=== PATIENT | male | born 1985 | race African-American/Black ===

== ENCOUNTER 2017-04-28 02:50 | Inpatient (IN) ==
[2017-04-28] MEDS ORDERED: KETOROLAC 30 MG/1 ML VIAL IV STA (03:29)
[2017-04-28] MEDS ORDERED: ALUM/MAG/SIMETH/LIDO VISC 1:1 30 ML BOTTLE PO STA (03:29)
[2017-04-28] MEDS ORDERED: MORPHINE 2 MG/1 ML SYRINGE IV STA (03:29)
[2017-04-28] MEDS ORDERED: SODIUM CHLORIDE 0.9% 500 ML IV STA (03:29)
[2017-04-28] MEDS ORDERED: PANTOPRAZOLE 40 MG VIAL IV STA (03:29)
[2017-04-28] MEDS ORDERED: ONDANSETRON 4 MG/2 ML VIAL IV STA (03:29)
[2017-04-28] MEDS ORDERED: ASPIRIN 325 MG TABLET PO STA (03:29)
[2017-04-28] MEDS ORDERED: ASPIRIN 325 MG TABLET ONE (03:37)
[2017-04-28] MEDS ORDERED: KETOROLAC 30 MG/1 ML VIAL ONE (03:37)
[2017-04-28] MEDS ORDERED: ALUM/MAG/SIMETH/LIDO VISC 1:1 30 ML BOTTLE PO ONE (03:37)
[2017-04-28] MEDS ORDERED: ONDANSETRON 4 MG/2 ML VIAL ONE (03:37)
[2017-04-28] MEDS ORDERED: MORPHINE 2 MG/1 ML SYRINGE ONE (03:37)
[2017-04-28] MEDS ORDERED: PANTOPRAZOLE 40 MG VIAL IV ONE (03:39)
[2017-04-28 03:45] LABS: Basophils # 0.1 10*3/uL (0.0-0.2); Basophils % 0.9 % (0.0-0.8); Eosinophils # 0.1 10*3/uL (0.0-0.87); Eosinophils % 0.7 % (0.00-10.9); Hematocrit 45.1 VOL% (42.0-52.0); Hemoglobin 15.9 GM/DL (14.0-18.0); Immature Granulocytes % 0.3 %; Immature Granulocytes Absolute 0.03 #; Lymphocytes # 1.8 10*3/uL (1.4-4.0); Lymphocytes % 20.6 % (21.2-54.2); Mean Corpuscular HGB Conc 35.3 GM/DL (32-36); Mean Corpuscular Hemoglobin 32 PG (27-34); Mean Corpuscular Volume 90.7 FL (87-102); Mean Platelet Volume 10.6 FL (9.6-12.0); Monocytes # 0.8 10*3/uL (0.11-0.8); Monocytes % 8.8 % (1.7-12.7); Neutrophils # 6.1 10*3/uL (1.4-7.4); Neutrophils % 68.7 % (38.7-73.9); Platelet Count 265 T/CUMM (130-400); Red Blood Count 4.97 MC/CUMM (3.8-5.5); Red Cell Distribution Width 11.6 % (9.3-17.3); White Blood Count 8.9 T/CUMM (4-12)
[2017-04-28 03:57] LABS: INR 0.9; PT Patient Result 9.9 SECS
[2017-04-28 04:07] LABS: Alanine Aminotransferase 32 U/L (16-61); Albumin 4.5 G/DL (3.4-5.0); Alkaline Phosphatase 105 U/L (45-117); Amylase 79 U/L (25-115); Aspartate Amino Transferase 26 U/L (0-37); Blood Urea Nitrogen 19 MG/DL (7-18); Calcium 9.8 MG/DL (8.5-10.1); Osmolality,Calculated 282.1 MOS/KG (273-304); Potassium 4.6 MMOL/L (3.5-5.1); Sodium 128 MMOL/L (136-145); Total Protein 8.3 G/DL (6.4-8.3); Troponin I Only < 0.015 NG/ML (0.00-0.045)
[2017-04-28 04:08] LABS: Magnesium 2.2 MG/DL (1.8-2.4)
[2017-04-28 04:09] LABS: Glucose 533 MG/DL (74-106)
[2017-04-28] MEDS ORDERED: INSULIN REGULAR 100 UNIT/ML IV STA (04:10)
[2017-04-28] MEDS ORDERED: SODIUM CHLORIDE 0.9% 1,000 ML IV STA (04:11)
[2017-04-28 04:17] LABS: Lactic Acid 3.3 MMOL/L (0.4-2.0)
[2017-04-28] MEDS ORDERED: INSULIN REGULAR 100 UNIT/ML ONE (04:21)
[2017-04-28 04:37] LABS: Allen Test Positive; Pt O2 Delivery Device Room Air
[2017-04-28 04:38] LABS: ABG Base Excess -15.3 MMOL/L (-2.5-2.5); ABG HCO3 13.2 MMOL/L (20-26); ABG Oxygen Saturation 96.8 % (95-100); ABG PCO2 28.4 MM HG (35-48); ABG PH 7.219 (7.35-7.45); ABG PO2 97.3 MM HG (80-95); ABG TCO2 10.2 MMOL/L (23-27)
[2017-04-28 05:00] LABS: Apearance,Urine CLEAR (Clear); Bilirubin,Urine Negative (Negative); Blood, Urine Small mg/dL (Negative); Glucose,Urine (UA) >=500 mg/dL (Negative); Ketones,Urine 80 mg/dL (Negative); Mucus,Urine Occasional /LPF (Occasional); Nitrite,Urine Negative (Negative); Protein,Urine Negative; RBC,Urine <1 /HPF (0-4); Urine Color Colorless (Yellow); Urine Specific Gravity 1.025 (1.001-1.035); Urine Urobilinogen < 2.0 EU/DL (0.2-1.0); WBC,Urine <1 /HPF (0-6)
[2017-04-28] MEDS ORDERED: INSULIN REGULAR DRIP 100 ML IV ONE (05:12)
[2017-04-28 05:13] LABS: Barbiturates Screen,Urine Negative (Negative); Benzodiazepines Screen,Urine Negative (Negative); Cannabinoid Screen,Urine Negative (Negative); Opiate Screen,Urine Negative (Negative); Phencyclidine Screen,Urine Negative (Negative)
[2017-04-28] MEDS ORDERED: INSULIN REGULAR DRIP 100 ML IV SCH ×2 (05:30→05:43)
[2017-04-28] MEDS ORDERED: SODIUM BICARB INJ 100 MEQ in STERILE WATER INJ 400 ML IV PRN (05:43)
[2017-04-28] MEDS ORDERED: SODIUM CHLORIDE 0.9% 1,000 ML IV ONE (05:43)
[2017-04-28] MEDS ORDERED: MAGNESIUM SULF RIDER 2 GM in PREMIX 1 EACH IV PRN (05:43)
[2017-04-28] MEDS ORDERED: SODIUM PHOSPHATE INJ 17 MMOL in SODIUM CHLORIDE 0.9% 250 ML IV PRN (05:43)
[2017-04-28] MEDS ORDERED: INSULIN REGULAR 100 UNIT/ML IV ONE ×4 (05:43→13:19)
[2017-04-28] MEDS ORDERED: MAGNESIUM SULF RIDER 4 GM in PREMIX 1 EACH IV PRN (05:43)
[2017-04-28] MEDS ORDERED: POTASSIUM CHLORIDE RIDER 10 MEQ in PREMIX 1 EACH IV PRN (05:43)
[2017-04-28] MEDS ORDERED: DEXTROSE 50% 25 GM/50 ML VIAL IV PRN ×3 (05:43→14:10)
[2017-04-28 07:15] LABS: Basophils # 0.1 10*3/uL (0.0-0.2); Basophils % 0.6 % (0.0-0.8); Eosinophils % 0.2 % (0.00-10.9); Hematocrit 37.1 VOL% (42.0-52.0); Hemoglobin 13.5 GM/DL (14.0-18.0); Immature Granulocytes % 0.3 %; Immature Granulocytes Absolute 0.03 #; Lymphocytes # 1.6 10*3/uL (1.4-4.0); Lymphocytes % 18.6 % (21.2-54.2); Mean Corpuscular HGB Conc 36.4 GM/DL (32-36); Mean Corpuscular Hemoglobin 32 PG (27-34); Mean Platelet Volume 10.5 FL (9.6-12.0); Monocytes # 0.8 10*3/uL (0.11-0.8); Monocytes % 9.2 % (1.7-12.7); Neutrophils # 6.3 10*3/uL (1.4-7.4); Neutrophils % 71.1 % (38.7-73.9); Platelet Count 236 T/CUMM (130-400); Red Blood Count 4.17 MC/CUMM (3.8-5.5); Red Cell Distribution Width 11.5 % (9.3-17.3); White Blood Count 8.8 T/CUMM (4-12)
[2017-04-28] MEDS: SODIUM CHLORIDE 0.9% 1,000 ML IV SCH ×2 (07:35→09:51)
[2017-04-28 08:33] LABS: Calcium 8.4 MG/DL (8.5-10.1); Osmolality,Calculated 283.1 MOS/KG (273-304); Potassium 4.3 MMOL/L (3.5-5.1)
[2017-04-28] MEDS: PYRIDOSTIGMINE 60 MG TABLET PO SCH ×4 (09:08→20:20)
[2017-04-28] MEDS: ENOXAPARIN 40 MG/0.4 ML SYRINGE SUBCUT SCH (09:08)
[2017-04-28 10:18] LABS: Calcium 7.5 MG/DL (8.5-10.1)
[2017-04-28 10:19] LABS: Osmolality,Calculated 285.8 MOS/KG (273-304); Potassium 3.8 MMOL/L (3.5-5.1)
[2017-04-28] MEDS ORDERED: SODIUM CHLORIDE 0.9% 1,000 ML IV SCH (10:19)
[2017-04-28] MEDS ORDERED: DEXTROSE 5% NACL 0.9% 1,000 ML IV SCH (13:30)
[2017-04-28 13:36] LABS: Calcium 7.3 MG/DL (8.5-10.1); Osmolality,Calculated 283.5 MOS/KG (273-304); Potassium 3.8 MMOL/L (3.5-5.1)
[2017-04-28] MEDS ORDERED: GLUCAGON 1 MG VIAL IM PRN (14:10)
[2017-04-28] MEDS: INSULIN GLARGINE 100 UNIT/ML SUBCUT SCH (14:24)
[2017-04-28] MEDS: SODIUM CHLORIDE 0.45% 1,000 ML IV SCH ×2 (14:24→21:49)
[2017-04-28] MEDS: INSULIN LISPRO 100 UNIT/ML SUBCUT SCH ×2 (16:09→20:19)
[2017-04-28] MEDS ORDERED: PHENOL 1.4% THROAT SPRAY 177 ML BOTTLE PO PRN (20:36)
[2017-04-28] MEDS ORDERED: ONDANSETRON 4 MG/2 ML VIAL IV PRN (23:11)
[2017-04-29 04:49] LABS: Basophils % 0.6 % (0.0-0.8); Eosinophils # 0.2 10*3/uL (0.0-0.87); Eosinophils % 3.1 % (0.00-10.9); Hemoglobin 12.4 GM/DL (14.0-18.0); Immature Granulocytes % 0.3 %; Immature Granulocytes Absolute 0.02 #; Lymphocytes # 2.5 10*3/uL (1.4-4.0); Lymphocytes % 38.8 % (21.2-54.2); Mean Corpuscular HGB Conc 35.4 GM/DL (32-36); Mean Corpuscular Hemoglobin 32 PG (27-34); Mean Corpuscular Volume 89.1 FL (87-102); Mean Platelet Volume 10.7 FL (9.6-12.0); Monocytes # 0.7 10*3/uL (0.11-0.8); Monocytes % 10.3 % (1.7-12.7); Neutrophils % 46.9 % (38.7-73.9); Platelet Count 214 T/CUMM (130-400); Red Blood Count 3.93 MC/CUMM (3.8-5.5); Red Cell Distribution Width 11.6 % (9.3-17.3); White Blood Count 6.4 T/CUMM (4-12)
[2017-04-29 05:26] LABS: Calcium 7.7 MG/DL (8.5-10.1)
[2017-04-29 05:27] LABS: Potassium 3.6 MMOL/L (3.5-5.1)
[2017-04-29 06:19] LABS: Magnesium 2.2 MG/DL (1.8-2.4); Phosphorous 2.1 MG/DL (2.5-4.9)
[2017-04-29] MEDS: SODIUM CHLORIDE 0.45% 1,000 ML IV SCH (06:23)
[2017-04-29] MEDS: INSULIN LISPRO 100 UNIT/ML SUBCUT SCH ×2 (08:54→12:06)
[2017-04-29] MEDS ORDERED: predniSONE 20 MG TABLET PO SCH (09:00)
[2017-04-29] MEDS: PYRIDOSTIGMINE 60 MG TABLET PO SCH (09:34)
[2017-04-29] MEDS: INSULIN GLARGINE 100 UNIT/ML SUBCUT SCH (09:34)
[2017-04-29] MEDS: ENOXAPARIN 40 MG/0.4 ML SYRINGE SUBCUT SCH (09:35)
[2017-04-29 12:24] VITALS: BP 129/87
== END 2017-04-29 13:11 | disposition home or self-care (01) | DRG 638 ==
LOC: N.ED 02:50 → N.EDINP 04:40 → SUATTDRO 04:40 → N.ICU 05:18
PROVIDERS: ADMIT Internal Medicine; ATTEND Internal Medicine

== ENCOUNTER 2018-05-17 22:16 | Inpatient (IN) ==
[2018-05-17] MEDS ORDERED: ONDANSETRON 4 MG/2 ML VIAL IV STA (22:47)
[2018-05-17] MEDS ORDERED: SODIUM CHLORIDE 0.9% 1,000 ML IV STA (22:47)
[2018-05-17] MEDS ORDERED: KETOROLAC 30 MG/1 ML VIAL IV STA (22:48)
[2018-05-17 23:07] LABS: Basophils # 0.1 10*3/uL (0.0-0.2); Basophils % 0.4 % (0.0-0.8); Eosinophils % 0.2 % (0.00-10.9); Hematocrit 45.2 VOL% (42.0-52.0); Hemoglobin 15.1 GM/DL (14.0-18.0); Immature Granulocytes Absolute 0.19 #; Lymphocytes # 1.1 10*3/uL (1.4-4.0); Lymphocytes % 5.6 % (21.2-54.2); Mean Corpuscular HGB Conc 33.4 GM/DL (32-36); Mean Corpuscular Hemoglobin 33 PG (27-34); Mean Corpuscular Volume 98.3 FL (87-102); Monocytes # 1.4 10*3/uL (0.11-0.8); Monocytes % 7.3 % (1.7-12.7); NRBC # 0.02 10*3/uL; Neutrophils # 16.3 10*3/uL (1.4-7.4); Neutrophils % 85.5 % (38.7-73.9); Platelet Count 361 T/CUMM (130-400); Red Cell Distribution Width 12.2 % (9.3-17.3)
[2018-05-17 23:25] LABS: Albumin 4.7 G/DL (3.4-5.0); Calcium 9.7 MG/DL (8.5-10.1); Osmolality,Calculated 286.5 MOS/KG (273-304); Potassium 5.2 MMOL/L (3.5-5.1); Total Protein 9.2 G/DL (6.4-8.3)
[2018-05-18] MEDS ORDERED: INSULIN REGULAR 100 UNIT/ML ONE (00:17)
[2018-05-18] MEDS ORDERED: SODIUM CHLORIDE 0.9% 1,000 ML IV STA (00:24)
[2018-05-18] MEDS ORDERED: INSULIN REGULAR 100 UNIT/ML IV STA (00:24)
[2018-05-18] MEDS ORDERED: ONDANSETRON 4 MG/2 ML VIAL IV STA (00:28)
[2018-05-18] MEDS ORDERED: cefTRIAXone 1,000 MG in SODIUM CHLORIDE 0.9% 100 ML IV STA (00:37)
[2018-05-18 01:00] LABS: Apearance,Urine CLEAR (Clear); Bilirubin,Urine Negative (Negative); Blood, Urine Negative (Negative); Glucose,Urine (UA) >=500 mg/dL (Negative); Ketones,Urine 80 mg/dL (Negative); Nitrite,Urine Negative (Negative); Protein,Urine 30 MG/DL; RBC,Urine <1 /HPF (0-4); Urine Color Straw (Yellow); Urine Specific Gravity 1.018 (1.001-1.035); Urine Urobilinogen < 2.0 EU/DL (0.2-1.0); WBC,Urine 1 /HPF (0-6)
[2018-05-18 01:11] LABS: ABG Base Excess -18.5 MMOL/L (-2.5-2.5); ABG HCO3 11.1 MMOL/L (20-26); ABG Oxygen Saturation 97.4 % (95-100); ABG PCO2 25.6 MM HG (35-48); ABG TCO2 8.4 MMOL/L (23-27); Allen Test Positive; Pt O2 Delivery Device Room Air
[2018-05-18 01:13] LABS: ABG PH 7.167 (7.35-7.45)
[2018-05-18] MEDS ORDERED: SODIUM CHLORIDE 0.9% 1,000 ML IV ONE (01:22)
[2018-05-18] MEDS ORDERED: SODIUM BICARB INJ 100 MEQ in STERILE WATER INJ 400 ML IV PRN (01:22)
[2018-05-18] MEDS ORDERED: MAGNESIUM SULF RIDER 2 GM in PREMIX 1 EACH IV PRN (01:22)
[2018-05-18] MEDS ORDERED: MAGNESIUM SULF RIDER 4 GM in PREMIX 1 EACH IV PRN (01:22)
[2018-05-18] MEDS ORDERED: DEXTROSE 50% 25 GM/50 ML VIAL IV PRN ×2 (01:22)
[2018-05-18] MEDS ORDERED: SODIUM PHOSPHATE INJ 17 MMOL in SODIUM CHLORIDE 0.9% 250 ML IV PRN (01:22)
[2018-05-18] MEDS ORDERED: ALBUTEROL 2.5 MG/3 ML NEB RESP TX PRN (01:31)
[2018-05-18] MEDS ORDERED: PROMETHAZINE 25 MG/1 ML VIAL IM PRN ×2 (01:31→10:03)
[2018-05-18] MEDS ORDERED: ACETAMINOPHEN 325 MG TABLET PO PRN (01:31)
[2018-05-18] MEDS ORDERED: AZITHROMYCIN INJ 500 MG in SODIUM CHLORIDE 0.9% 250 ML IV SCH (02:00)
[2018-05-18 02:04] LABS: Calcium 8.4 MG/DL (8.5-10.1); Osmolality,Calculated 288.1 MOS/KG (273-304)
[2018-05-18] MEDS: SODIUM CHLORIDE 0.9% 1,000 ML IV SCH ×2 (02:09→04:22)
[2018-05-18] MEDS: INSULIN REGULAR DRIP 100 ML IV SCH ×2 (02:10→18:09)
[2018-05-18] MEDS: ONDANSETRON 4 MG/2 ML VIAL IV PRN ×3 (02:41→17:37)
[2018-05-18 04:31] LABS: ABG Base Excess -13.3 MMOL/L (-2.5-2.5); ABG HCO3 14.3 MMOL/L (20-26); ABG PCO2 28.6 MM HG (35-48); ABG PH 7.258 (7.35-7.45); ABG TCO2 11.4 MMOL/L (23-27); Allen Test Positive; Pt O2 Delivery Device Room Air
[2018-05-18 05:17] LABS: Basophils # 0.1 10*3/uL (0.0-0.2); Basophils % 0.3 % (0.0-0.8); Hematocrit 35.9 VOL% (42.0-52.0); Hemoglobin 12.1 GM/DL (14.0-18.0); Immature Granulocytes Absolute 0.19 #; Lymphocytes # 1.1 10*3/uL (1.4-4.0); Lymphocytes % 5.6 % (21.2-54.2); Mean Corpuscular HGB Conc 33.7 GM/DL (32-36); Mean Corpuscular Hemoglobin 33 PG (27-34); Mean Corpuscular Volume 97.3 FL (87-102); Mean Platelet Volume 10.4 FL (9.6-12.0); Monocytes # 1.1 10*3/uL (0.11-0.8); Monocytes % 5.8 % (1.7-12.7); Neutrophils # 17.1 10*3/uL (1.4-7.4); Neutrophils % 87.3 % (38.7-73.9); Platelet Count 320 T/CUMM (130-400); Red Blood Count 3.69 MC/CUMM (3.8-5.5); Red Cell Distribution Width 12.2 % (9.3-17.3); White Blood Count 19.5 T/CUMM (4-12)
[2018-05-18 05:23] LABS: Osmolality,Calculated 287.7 MOS/KG (273-304); Potassium 4.7 MMOL/L (3.5-5.1)
[2018-05-18] MEDS ORDERED: DEXTROSE 5% NACL 0.9% 1,000 ML IV SCH ×2 (05:30→06:30)
[2018-05-18] MEDS ORDERED: SODIUM CHLORIDE 0.9% 1,000 ML IV SCH (06:22)
[2018-05-18] MEDS: DEXT 5% NACL 0.45% KCL 20 MEQ 20 MEQ/1,000 ML BAG IV SCH ×3 (08:24→16:05)
[2018-05-18] MEDS: HYDROCORTISONE 100 MG VIAL IV SCH ×2 (08:28→16:12)
[2018-05-18] MEDS: PYRIDOSTIGMINE 60 MG TABLET PO SCH ×4 (08:31→21:00)
[2018-05-18 10:45] LABS: Calcium 8.5 MG/DL (8.5-10.1); Osmolality,Calculated 283.3 MOS/KG (273-304); Potassium 3.6 MMOL/L (3.5-5.1)
[2018-05-18] MEDS: HYDROmorphone 2 MG/1 ML VIAL IV PRN ×2 (11:04→18:54)
[2018-05-18 14:36] LABS: Calcium 8.4 MG/DL (8.5-10.1); Osmolality,Calculated 281.7 MOS/KG (273-304); Potassium 4.6 MMOL/L (3.5-5.1)
[2018-05-18 18:09] LABS: Calcium 8.7 MG/DL (8.5-10.1); Osmolality,Calculated 280.4 MOS/KG (273-304); Potassium 3.8 MMOL/L (3.5-5.1)
[2018-05-18] MEDS ORDERED: SODIUM CHLORIDE 0.45% 1,000 ML IV SCH (18:22)
[2018-05-18] MEDS ORDERED: DEXT 5% NACL 0.45% KCL 20 MEQ 20 MEQ/1,000 ML BAG IV SCH (20:00)
[2018-05-18] MEDS: POTASSIUM CHLORIDE INJ 10 MEQ in DEXTROSE 5% NACL 0.9% 1,000 ML IV SCH (20:59)
[2018-05-18] MEDS: PANTOPRAZOLE 40 MG VIAL IV SCH (21:24)
[2018-05-18 22:07] LABS: Calcium 8.3 MG/DL (8.5-10.1); Osmolality,Calculated 282.4 MOS/KG (273-304); Potassium 3.8 MMOL/L (3.5-5.1)
[2018-05-19] MEDS: HYDROCORTISONE 100 MG VIAL IV SCH ×4 (00:03→21:56)
[2018-05-19] MEDS: cefTRIAXone 1,000 MG in SYRINGE 1 EACH IV SCH (00:52)
[2018-05-19] MEDS: INSULIN REGULAR DRIP 100 ML IV SCH (02:07)
[2018-05-19 03:07] LABS: Calcium 8.7 MG/DL (8.5-10.1); Osmolality,Calculated 273.8 MOS/KG (273-304); Potassium 3.7 MMOL/L (3.5-5.1)
[2018-05-19] MEDS: POTASSIUM CHLORIDE RIDER 10 MEQ in PREMIX 1 EACH IV PRN ×3 (03:26→11:18)
[2018-05-19] MEDS: POTASSIUM CHLORIDE INJ 10 MEQ in DEXTROSE 5% NACL 0.9% 1,000 ML IV SCH ×2 (04:58→13:18)
[2018-05-19 05:48] LABS: Osmolality,Calculated 276.5 MOS/KG (273-304); Potassium 3.7 MMOL/L (3.5-5.1)
[2018-05-19] MEDS ORDERED: INSULIN NPH/REGULAR 70/30 100 UNIT/ML SUBCUT SCH (08:30)
[2018-05-19] MEDS: INSULIN LISPRO 100 UNIT/ML SUBCUT SCH ×4 (08:53→22:00)
[2018-05-19] MEDS: PANTOPRAZOLE 40 MG VIAL IV SCH ×2 (09:06→21:52)
[2018-05-19] MEDS: ONDANSETRON 4 MG/2 ML VIAL IV PRN (09:11)
[2018-05-19] MEDS: PYRIDOSTIGMINE 60 MG TABLET PO SCH ×4 (09:54→21:55)
[2018-05-19] MEDS: diphenhydrAMINE CAP 25 MG CAPSULE PO PRN (12:25)
[2018-05-19] MEDS ORDERED: INSULIN GLARGINE 100 UNIT/ML SUBCUT SCH (21:00)
[2018-05-20] MEDS: cefTRIAXone 1,000 MG in SYRINGE 1 EACH IV SCH (00:51)
[2018-05-20] MEDS: POTASSIUM CHLORIDE INJ 10 MEQ in DEXTROSE 5% NACL 0.9% 1,000 ML IV SCH ×3 (00:54→13:40)
[2018-05-20] MEDS: INSULIN LISPRO 100 UNIT/ML SUBCUT SCH ×4 (02:20→11:39)
[2018-05-20] MEDS: diphenhydrAMINE CAP 25 MG CAPSULE PO PRN (04:08)
[2018-05-20 05:15] LABS: Calcium 8.4 MG/DL (8.5-10.1); Osmolality,Calculated 285.8 MOS/KG (273-304); Potassium 3.9 MMOL/L (3.5-5.1)
[2018-05-20] MEDS: HYDROCORTISONE 100 MG VIAL IV SCH (08:36)
[2018-05-20] MEDS: PYRIDOSTIGMINE 60 MG TABLET PO SCH ×2 (09:53→20:31)
[2018-05-20] MEDS: PANTOPRAZOLE 40 MG VIAL IV SCH (09:53)
[2018-05-20 12:33] VITALS: BP 127/79
== END 2018-05-20 13:30 | disposition home or self-care (01) | DRG 638 ==
LOC: N.ED 22:16 → N.EDINP 05-18 01:21 → SUATTDRO 05-18 01:21 → N.CC 05-18 01:30 → N.3E 05-19 16:37
PROVIDERS: ADMIT Internal Medicine; ATTEND Internal Medicine

== ENCOUNTER 2021-12-10 19:46 | Inpatient (IN) ==
[2021-12-10] MEDS ORDERED: SODIUM CHLORIDE 0.9% 1,000 ML IV STA (20:37)
[2021-12-10] MEDS ORDERED: INSULIN REGULAR 100 UNIT/ML IV ONE (21:25)
[2021-12-10] MEDS ORDERED: ONDANSETRON 4 MG/2 ML VIAL IV ONE (22:07)
[2021-12-10 22:10] LABS: Basophils # 0.1 10*3/uL (0.0-0.2); Basophils % 0.5 % (0.0-0.8); Eosinophils % 0.2 % (0.00-10.9); Hematocrit 43.9 VOL% (42.0-52.0); Hemoglobin 15.2 GM/DL (14.0-18.0); Immature Granulocytes % 0.7 %; Immature Granulocytes Absolute 0.15 #; Lymphocytes # 0.9 10*3/uL (1.4-4.0); Lymphocytes % 4.1 % (21.2-54.2); Mean Corpuscular HGB Conc 34.6 GM/DL (32-36); Mean Corpuscular Volume 92.6 FL (87-102); Mean Platelet Volume 10.1 FL (9.6-12.0); Monocytes # 1.2 10*3/uL (0.11-0.8); Monocytes % 5.5 % (1.7-12.7); Platelet Count 322 T/CUMM (130-400); Red Blood Count 4.74 MC/CUMM (3.8-5.5); Red Cell Distribution Width 12.4 % (9.3-17.3); White Blood Count 21.4 T/CUMM (4-12)
[2021-12-10 22:32] LABS: Albumin 4.3 G/DL (3.4-5.0); Bilirubin,Total 2.4 MG/DL (0.20-1.00); Calcium 9.6 MG/DL (8.5-10.1); Osmolality,Calculated 282.5 MOS/KG (273-304); Potassium 5.9 MMOL/L (3.5-5.1); Total Protein 8.2 G/DL (6.4-8.2)
[2021-12-10 22:34] LABS: Lymphocytes 4 % (20-55); Total Cells Counted 100
[2021-12-10 22:35] LABS: Platelet Estimate Normal
[2021-12-10] MEDS ORDERED: MORPHINE 2 MG/1 ML SYRINGE IV STA (22:42)
[2021-12-10] MEDS ORDERED: LACTATED RINGERS 1,000 ML IV SCH (23:30)
[2021-12-10] MEDS ORDERED: SODIUM BICARB INJ 100 MEQ in STERILE WATER INJ 400 ML IV PRN (23:43)
[2021-12-10] MEDS ORDERED: SODIUM PHOSPHATE IV PRN (23:43)
[2021-12-10] MEDS ORDERED: SODIUM CHLORIDE 0.9% IV PRN (23:43)
[2021-12-10] MEDS ORDERED: MAGNESIUM SULF RIDER 4 GM/100 ML PREMIX IV PRN (23:43)
[2021-12-10] MEDS ORDERED: POTASSIUM CHLORIDE RIDER 10 MEQ/100 ML PREMIX IV PRN (23:43)
[2021-12-10] MEDS ORDERED: MAGNESIUM SULF RIDER 2 GM/50 ML PREMIX IV PRN (23:43)
[2021-12-10] MEDS ORDERED: INSULIN REGULAR DRIP 100 ML IV SCH (23:45)
[2021-12-10] MEDS ORDERED: INSULIN REGULAR DRIP 100 ML IV PRN (23:48)
[2021-12-11] MEDS ORDERED: DEXTROSE 50% 25 GM/50 ML SYRINGE IV PRN (00:40)
[2021-12-11] MEDS ORDERED: DEXTROSE 10% 250 ML BAG IV PRN ×3 (00:40→12:51)
[2021-12-11] MEDS: SODIUM CHLORIDE 0.9% 1,000 ML IV SCH ×3 (00:59→05:31)
[2021-12-11 01:00] LABS: Bacteria,Urine Occasional /HPF (Few); Mucus,Urine Occasional /LPF (Occasional); RBC,Urine 2 /HPF (0-4)
[2021-12-11 01:01] LABS: Bilirubin,Urine Negative (Negative); Blood, Urine Trace mg/dL (Negative); Glucose,Urine (UA) 500 mg/dL (Negative); Ketones,Urine >160 mg/dL (Negative); Nitrite,Urine Negative (Negative); Protein,Urine 30 mg/dL (Negative); Urine Appearance Clear (Clear); Urine Color Yellow (Yellow); Urine Specific Gravity > 1.030 (1.001-1.035); Urine Urobilinogen 0.2 eU/dL (<2.0); Urine pH 5.5 (4.5-8.0)
[2021-12-11] MEDS ORDERED: ALBUTEROL 2.5 MG/3 ML NEB RESP TX PRN (02:10)
[2021-12-11] MEDS ORDERED: ONDANSETRON 4 MG/2 ML VIAL IV PRN (02:10)
[2021-12-11] MEDS ORDERED: PROMETHAZINE 25 MG/1 ML VIAL IM PRN (02:10)
[2021-12-11 02:47] VITALS: BP 121/66
[2021-12-11 03:23] LABS: Basophils # 0.1 10*3/uL (0.0-0.2); Basophils % 0.3 % (0.0-0.8); Hematocrit 39.1 VOL% (42.0-52.0); Hemoglobin 13.4 GM/DL (14.0-18.0); Immature Granulocytes % 0.6 %; Immature Granulocytes Absolute 0.13 #; Lymphocytes # 1.8 10*3/uL (1.4-4.0); Mean Corpuscular HGB Conc 34.3 GM/DL (32-36); Mean Corpuscular Volume 93.1 FL (87-102); Monocytes % 4.7 % (1.7-12.7); Neutrophils % 85.4 % (38.7-73.9); Platelet Count 359 T/CUMM (130-400); Red Cell Distribution Width 12.5 % (9.3-17.3); White Blood Count 20.2 T/CUMM (4-12)
[2021-12-11 03:25] LABS: Arterial Base Excess iSTAT -10 MMOL/L (-2.5-2.5); Arterial Bicarbonate iSTAT 16.4 MMOL/L (20-26); Arterial O2 Saturation iSTAT 88 % (95-100); Arterial PCO2 iSTAT 36 MM HG (35-48); Arterial PO2 iSTAT 61 MM HG (80-95); Arterial Total CO2 iSTAT 17 MMO/L (23-27); Arterial pH iSTAT 7.263 (7.35-7.45)
[2021-12-11 03:41] LABS: Lymphocytes 11 % (20-55); Total Cells Counted 100
[2021-12-11 03:42] LABS: Platelet Estimate Normal
[2021-12-11 03:43] LABS: Calcium 8.5 MG/DL (8.5-10.1); Osmolality,Calculated 282.5 MOS/KG (273-304); Phosphorous 3.8 MG/DL (2.5-4.9); Potassium 4.6 MMOL/L (3.5-5.1)
[2021-12-11] MEDS ORDERED: SODIUM CHLORIDE 0.9% 1,000 ML IV SCH (05:00)
[2021-12-11] MEDS ORDERED: DEXTROSE 5% NACL 0.9% 1,000 ML IV SCH ×2 (05:30→06:00)
[2021-12-11 08:44] LABS: Osmolality,Calculated 280.5 MOS/KG (273-304); Potassium 4.1 MMOL/L (3.5-5.1)
[2021-12-11] MEDS ORDERED: PANTOPRAZOLE 40 MG VIAL IV SCH (09:00)
[2021-12-11] MEDS ORDERED: SODIUM CHLORIDE 0.9% 1,000 ML IV ONE (09:00)
[2021-12-11] MEDS: SODIUM CHLORIDE 0.45% 1,000 ML IV SCH ×4 (09:30→17:11)
[2021-12-11] MEDS: prednisoLONE 15 MG/5 ML ORAL.SYR PO SCH (09:37)
[2021-12-11] MEDS: ENOXAPARIN 40 MG/0.4 ML SYRINGE SUBCUT SCH (09:37)
[2021-12-11] MEDS: azaTHIOprine 50 MG TABLET PO SCH ×2 (09:38→20:03)
[2021-12-11] MEDS: PYRIDOSTIGMINE 60 MG TABLET PO SCH ×3 (09:38→20:03)
[2021-12-11] MEDS ORDERED: DEXTROSE 5% NACL 0.45% 1,000 ML IV SCH (10:30)
[2021-12-11 12:26] LABS: Calcium 7.9 MG/DL (8.5-10.1); Osmolality,Calculated 280.7 MOS/KG (273-304); Potassium 3.3 MMOL/L (3.5-5.1)
[2021-12-11] MEDS ORDERED: GLUCAGON 1 MG VIAL IM PRN (12:49)
[2021-12-11] MEDS: INSULIN GLARGINE 100 UNIT/ML SUBCUT SCH (13:15)
[2021-12-11] MEDS: IMMUNE GLOBULIN IV SCH (13:25)
[2021-12-11] MEDS: INSULIN LISPRO 100 UNIT/ML SUBCUT SCH ×2 (16:23→20:00)
[2021-12-11] MEDS: POTASSIUM CHLORIDE 20 MEQ TABLET PO PRN ×2 (16:23→20:22)
[2021-12-11] MEDS ORDERED: SODIUM CHLORIDE 0.45% 1,000 ML IV SCH (17:00)
[2021-12-11] MEDS: PHENOL 1.4% THROAT SPRAY 177 ML BOTTLE PO PRN (19:51)
[2021-12-12] MEDS: SODIUM CHLORIDE 0.45% 1,000 ML IV SCH ×3 (01:33→21:17)
[2021-12-12] MEDS: PHENOL 1.4% THROAT SPRAY 177 ML BOTTLE PO PRN (05:06)
[2021-12-12 05:44] LABS: Basophils % 0.5 % (0.0-0.8); Eosinophils # 0.1 10*3/uL (0.0-0.87); Eosinophils % 0.8 % (0.00-10.9); Hematocrit 34.5 VOL% (42.0-52.0); Hemoglobin 11.8 GM/DL (14.0-18.0); Immature Granulocytes % 0.2 %; Immature Granulocytes Absolute 0.02 #; Lymphocytes # 2.5 10*3/uL (1.4-4.0); Lymphocytes % 29.1 % (21.2-54.2); Mean Corpuscular HGB Conc 34.2 GM/DL (32-36); Mean Corpuscular Volume 92.2 FL (87-102); Mean Platelet Volume 9.9 FL (9.6-12.0); Monocytes # 0.7 10*3/uL (0.11-0.8); Monocytes % 8.2 % (1.7-12.7); Neutrophils % 61.2 % (38.7-73.9); Platelet Count 299 T/CUMM (130-400); Red Blood Count 3.74 MC/CUMM (3.8-5.5); Red Cell Distribution Width 12.5 % (9.3-17.3); White Blood Count 8.6 T/CUMM (4-12)
[2021-12-12 05:57] LABS: Calcium 8.8 MG/DL (8.5-10.1); Osmolality,Calculated 270.7 MOS/KG (273-304); Potassium 3.3 MMOL/L (3.5-5.1)
[2021-12-12 06:02] LABS: Risk Ratio 2.03; VLDL Cholesterol 14.4 MG/DL
[2021-12-12] MEDS: INSULIN LISPRO 100 UNIT/ML SUBCUT SCH ×4 (07:20→20:58)
[2021-12-12] MEDS: ACETAMINOPHEN 325 MG TABLET PO PRN ×2 (08:18→15:33)
[2021-12-12] MEDS: INSULIN GLARGINE 100 UNIT/ML SUBCUT SCH (08:54)
[2021-12-12] MEDS: ENOXAPARIN 40 MG/0.4 ML SYRINGE SUBCUT SCH (09:49)
[2021-12-12] MEDS: azaTHIOprine 50 MG TABLET PO SCH ×2 (09:50→20:57)
[2021-12-12] MEDS: POTASSIUM CHLORIDE 20 MEQ TABLET PO PRN ×3 (09:51→15:22)
[2021-12-12] MEDS: prednisoLONE 15 MG/5 ML ORAL.SYR PO SCH (09:51)
[2021-12-12] MEDS: PYRIDOSTIGMINE 60 MG TABLET PO SCH ×3 (09:51→20:57)
[2021-12-12] MEDS ORDERED: IBUPROFEN 400 MG TABLET PO ONE (13:01)
[2021-12-12] MEDS ORDERED: IBUPROFEN 400 MG TABLET PO PRN (13:04)
[2021-12-12] MEDS: BUTALBITAL/ACETAMIN/CAFFEINE 50-325-40 MG TABLET PO PRN (14:25)
[2021-12-12] MEDS: IMMUNE GLOBULIN IV SCH (14:29)
[2021-12-12 17:42] LABS: Calcium 8.7 MG/DL (8.5-10.1); Potassium 4.3 MMOL/L (3.5-5.1)
[2021-12-12] MEDS ORDERED: ZALEPLON 5 MG CAPSULE PO PRN (20:25)
[2021-12-13] MEDS: BUTALBITAL/ACETAMIN/CAFFEINE 50-325-40 MG TABLET PO PRN (00:30)
[2021-12-13] MEDS: SODIUM CHLORIDE 0.45% 1,000 ML IV SCH ×2 (00:40→10:13)
[2021-12-13] MEDS ORDERED: MORPHINE 2 MG/1 ML SYRINGE IV ONE (02:11)
[2021-12-13 05:22] LABS: Basophils % 0.6 % (0.0-0.8); Eosinophils # 0.1 10*3/uL (0.0-0.87); Eosinophils % 0.9 % (0.00-10.9); Hematocrit 30.5 VOL% (42.0-52.0); Hemoglobin 10.8 GM/DL (14.0-18.0); Immature Granulocytes % 0.3 %; Immature Granulocytes Absolute 0.02 #; Lymphocytes # 1.5 10*3/uL (1.4-4.0); Lymphocytes % 22.3 % (21.2-54.2); Mean Corpuscular HGB Conc 35.4 GM/DL (32-36); Mean Corpuscular Volume 90.5 FL (87-102); Mean Platelet Volume 9.7 FL (9.6-12.0); Monocytes # 0.8 10*3/uL (0.11-0.8); Monocytes % 11.8 % (1.7-12.7); Neutrophils % 64.1 % (38.7-73.9); Platelet Count 266 T/CUMM (130-400); Red Blood Count 3.37 MC/CUMM (3.8-5.5); Red Cell Distribution Width 12.3 % (9.3-17.3); White Blood Count 6.5 T/CUMM (4-12)
[2021-12-13 05:44] LABS: Calcium 8.2 MG/DL (8.5-10.1); Osmolality,Calculated 278.8 MOS/KG (273-304); Potassium 3.5 MMOL/L (3.5-5.1)
[2021-12-13] MEDS: azaTHIOprine 50 MG TABLET PO SCH (08:46)
[2021-12-13] MEDS: PYRIDOSTIGMINE 60 MG TABLET PO SCH (08:47)
[2021-12-13] MEDS: INSULIN LISPRO 100 UNIT/ML SUBCUT SCH (08:47)
[2021-12-13] MEDS: ENOXAPARIN 40 MG/0.4 ML SYRINGE SUBCUT SCH (08:47)
[2021-12-13] MEDS: prednisoLONE 15 MG/5 ML ORAL.SYR PO SCH (08:47)
[2021-12-13] MEDS ORDERED: INSULIN GLARGINE 100 UNIT/ML SUBCUT SCH (09:00)
== END 2021-12-13 10:30 | disposition home or self-care (01) | DRG 56 ==
LOC: N.ED 19:46 → N.EDINP 23:39 → SUATTDRO 12-11 03:06
PROVIDERS: ADMIT Internal Medicine; ATTEND Internal Medicine